=== PATIENT | female | born 1985 | race Caucasian/White ===

== ENCOUNTER 2017-06-15 22:29 | Emergency (ER) | payer MEDICAID ==
[~2017-06-15] VITALS: Ht 175.3 cm; Wt 95.5 kg
[2017-06-15 22:42] VITALS: BP 155/95; Ht 175.3 cm; Wt 95.5 kg
== END 2017-06-16 00:59 | disposition home or self-care (01) ==
LOC: ED 22:29
DX: M26.602 Left temporomandibular joint disorder, unspecified (principal); G44.209 Tension-type headache, unspecified, not intractable